=== PATIENT | male | born 1975 | race Caucasian/White ===

== ENCOUNTER 2018-07-07 20:39 | Emergency (ER) | payer MEDICAID ==
[~2018-07-07] VITALS: Ht 182.9 cm; Wt 90.7 kg
[2018-07-07] MEDS ORDERED: LIONS MANE MUSHROOM (20:52)
[2018-07-07] MEDS ORDERED: CEPH500 PO (21:34)
== END 2018-07-07 21:50 | disposition home or self-care (01) ==
LOC: ER 20:39
DX: L03.115 Cellulitis of right lower limb (principal)
CPT/HCPCS: 99283

== ENCOUNTER 2018-12-29 22:20 | Inpatient (IN) | payer OTHER ==
[~2018-12-29] VITALS: Ht 182.9 cm; Wt 107.9 kg
[~2018-12-29 22:20] MED LIST: CEPH500 PO; LIONS MANE MUSHROOM
[2018-12-29 22:49] LABS: BASOPHILS ABSOLUTE AUTO 0.05 K/mm3 (0.00-0.23); BASOPHILS PERCENT AUTO 1 % (0-2); EOSINOPHILS ABSOLUTE AUTO 0.24 K/mm3 (0.00-0.68); EOSINOPHILS PERCENT AUTO 2 % (0-6); Hematocrit 41.2 % (37.0-53.0); IMMATURE GRAN ABSOLUTE AUTO 0.03 K/mm3 (0.00-0.10); IMMATURE GRAN PERCENT AUTO 0 % (0-1); LYMPHOCYTES ABSOLUTE AUTO 1.82 K/mm3 (0.84-5.20); LYMPHOCYTES PERCENT AUTO 18 % (21-46); MONOCYTES ABSOLUTE AUTO 0.56 K/mm3 (0.16-1.47); MONOCYTES PERCENT AUTO 6 % (4-13); Mean Corpuscular HGB 29.3 pg (26.0-34.0); Mean Corpuscular HGB Conc 31.6 g/dL (31.5-36.5); Mean Corpuscular Volume 93 fL (80-100); NEUTROPHILS ABSOLUTE AUTO 7.31 K/mm3 (1.96-9.15); NEUTROPHILS PERCENT AUTO 73 % (41-73); Platelet Count 291 K/mm3 (150-400); RDW Coefficient Variation 12.6 % (11.7-14.2); RDW Standard Deviation 43.2 fL (35.1-46.3); Red Blood Cell Count 4.44 M/mm3 (4.30-5.90); White Blood Cell Count 10.01 K/mm3 (4.00-11.30)
[2018-12-29 23:23] LABS: Anion Gap 8 mmol/L (6-16); Blood Urea Nitrogen 11 mg/dL (8-24); Bun/Creatinine Ratio 13.3 (12.0-20.0); CO2, Blood 29 mmol/L (21-32); Chloride, Blood 109 mmol/L (98-108); Creatinine, Blood 0.83 mg/dL (0.60-1.20); Glomerular Filtration Rate >60 (60-); Glucose, Blood 136 mg/dL (70-99); Sodium, Blood 146 mmol/L (136-145); Total Protein, Blood 6.4 g/dL (6.4-8.2)
[2018-12-29 23:24] LABS: Alanine Aminotransfer (ALT/SGP 23 U/L (12-78); Albumin, Blood 3.3 g/dL (3.4-5.0); Albumin/Globulin Ratio 1.1 (0.8-1.8); Alk Phos 69 U/L (50-136); Aspartate Aminotrans (AST/SGOT 11 U/L (12-37); Bilirubin, Total 0.2 mg/dL (0.1-1.0); Globulin, Blood 3.1 g/dL (2.2-4.0); Troponin I 0.034 ng/mL (0.000-0.040)
[2018-12-30 03:07] LABS: International Normalized Ratio 1.02; Prothrombin Time Results 10.8 Sec (9.7-11.5)
--- NOTE | 2018-12-30 05:56 | NUR ---
SHIFT SUMMARY PT SLEEPING, TURNING AND MOVING SELF IN BED. UP TO BATHROOM AD SHANTA. RESP EVEN AND NONLABORED. PT SPO2 92-97% ON HIGH FLOW O2 VIA NC AT 11 LITERS. VSS. NO ACUTE CHANGE. REPORT TO ON COMING NURSE
--- NOTE | 2018-12-30 07:08 | NUR ---
SUMMARY PT ARRIVED TO ICU THIS MORNING. STAND AND TRANSFER TO ICU 10 BED. PT COMPLAINS OF CHEST DISCOMFORT, BUT STATES HE IS UNSURE IF IT IS RELATED TO CORDS/WIRES, BUT THAT IT ISN'T BAD LIKE IT WAS IN THE ER. PT ALSO COMPLAINS OF HEADACHE. SOME IMPROVEMENT WITH FENTANYL. PT EDUCATED, ENCOURAGED TO LET STAFF KNOW IF PAIN INCREASES SOON POSSIBLE AND PT AGREEABLE. ATTEMPTED TO EDUCATE PT ON USE OF STAND BY ASSIST FOR BATHROOM FOR SAFETY AND PATIENT REFUSES. PT ANXIOUS, TEARFUL RELATED TO DIAGNOSIS. EDUCATED PT ON PLAN. PT ALSO HYPERTENSIVE. OTHERWISE, VITALS STABLE. HYPERTENSION IMPROVED AFTER ADMIN OF ATIVAN AND ENCOURAGEMENT OF RELAXATION AND REST. DURING CHANGE OF SHIFT, PT CALLS STAFF INTO ROOM COMPLAINING OF CHEST PAIN. DAVE GAMBINO RN AT BEDSIDE. REPORT GIVEN TO TOAN PEREZ.
[2018-12-30 09:39] LABS: Hematocrit 39.8 % (37.0-53.0); Mean Corpuscular HGB 29.2 pg (26.0-34.0); Mean Corpuscular HGB Conc 32.7 g/dL (31.5-36.5); Mean Platelet Volume 10.2 fL (9.1-12.4); Platelet Count 291 K/mm3 (150-400); RDW Coefficient Variation 12.7 % (11.7-14.2); Red Blood Cell Count 4.45 M/mm3 (4.30-5.90); White Blood Cell Count 9.79 K/mm3 (4.00-11.30)
[2018-12-30 10:01] LABS: Alanine Aminotransfer (ALT/SGP 23 U/L (12-78); Albumin, Blood 3.6 g/dL (3.4-5.0); Albumin/Globulin Ratio 1.2 (0.8-1.8); Alk Phos 69 U/L (50-136); Anion Gap 8 mmol/L (6-16); Aspartate Aminotrans (AST/SGOT 13 U/L (12-37); Bilirubin, Total 0.3 mg/dL (0.1-1.0); Blood Urea Nitrogen 10 mg/dL (8-24); Bun/Creatinine Ratio 12.8 (12.0-20.0); CO2, Blood 26 mmol/L (21-32); Calcium, Blood 8.7 mg/dL (8.5-10.1); Chloride, Blood 108 mmol/L (98-108); Creatinine, Blood 0.78 mg/dL (0.60-1.20); Globulin, Blood 3.1 g/dL (2.2-4.0); Glomerular Filtration Rate >60 (60-); Glucose, Blood 120 mg/dL (70-99); Potassium, Blood 4.1 mmol/L (3.5-5.5); Sodium, Blood 142 mmol/L (136-145); Total Protein, Blood 6.7 g/dL (6.4-8.2); Troponin I 0.458 ng/mL (0.000-0.040)
[2018-12-30 10:18] LABS: Mean Corpuscular Volume 89 fL (80-100)
--- NOTE | 2018-12-30 12:46 | NUR ---
ASSUMED CARE OF PT: 704-ASSUMED CARE OF PT. PT COMPALINING OF CHEST PAIN 04/14 STABBING PAIN. PT HAS A NITRO PATCH IN PLACE. PT MEDICATED WITH 2MG OF MORPHINE IV PER ACLS PROTOCOL. 729-CALLED DR. RODRIGUEZ REGARDING PT'S COMPLAINTS OF CHEST PAIN. NO ORDERS RECEIVED. CHEST PAIN NOW 12/15. EKG DONE. 744-SPOKE WITH DR. EDOUARD REGARDING PT'S COMPLAINTS OF CHEST PAIN AND THAT PT RECEIVED A DOSE OF MORPHINE 2MG PER ACLS. SHE STATED PT CAN HAVE OT ORDER OF MORPHINE(WHICH PATIENT ALREADY RECEIVED) 08-DR. RODRIGUEZ AT BEDSIDE. PT DENIES CHEST PAIN AT THIS TIME. PT SOMEWHAT ANXIOUS. WILL GIVE 0.5MG OF ATIVAN ORDERED. PT HAD RECEIVED A DOSE OF ZOFRAN FOR NAUSEA. 1056-NITRO DRIP WAS STARTED @ 5MCG/MIN. DISCONTINUED NITRO PATCH.
--- NOTE | 2018-12-30 14:17 | NUR ---
Echocardiogram completed.
--- NOTE | 2018-12-30 17:25 | NUR ---
1700-PT COMPLAINTS OF 5/10 CHEST PAIN. INCREASED NITROGLYVERIN DRIP FROM 5MCG/MIN TO 10MCG/MIN. WILL WATCH FOR PERSISTENT CHEST PAIN.
[2018-12-30 17:43] LABS: Troponin I 0.346 ng/mL (0.000-0.040)
--- NOTE | 2018-12-30 18:16 | NUR ---
PT STILL COMPLAINTS OF CHEST PAIN DESPITE INCREASING NITROGLYCERIN DRIP TO 15MCG/MIN. THUS PT WAS MEDICATED WITH MORPHINE 2 MG IV. CP 3/10 AFTER RECEIVING MORPHINE. PT WAS MEDICATED WITH TYELNOL 650MG PO FOR HEADACHE. PT WAS TEARFUL. ASKED PT WHY HE'S CRYING, PT STATED HE " I JUST DON'T FEEL GOOD" INFORMED THAT HIS TROPONIN LEVEL IS GOING DOWN. INFORMED HIM REGARDING PLAN OF CARE. PT IS FEELING RELIEVED AFTER BEING EXPLAINED.
--- NOTE | 2018-12-30 18:40 | NUR ---
DR. RODRIGUEZ WAS NOTIFIED REGARDING PT'S COMPLAINTS OF CHEST PAIN AFTER GIVING HIM A DOSE OF MORPHINE AND INCREASING THE NITRO DRIP. PT STATED SMILING "IT WENT UP AGAIN" 03/14 AND WAS POINTING ACROSS HIS CHEST.
--- NOTE | 2018-12-30 19:30 | NUR ---
ASSUMED CARE REPORT AND ASSESSMENT COMPLETED. PT IS AWAKE AND ALERT, REPORTING CP 3-5/10, AM RN MEDICATED FOR PAIN AND INCREASED NTG GTT TO 20MCG AND HEPARIN GTT AT 17UNITS. PT REPORTING PAIN IS DECREASING AND IS LOOKIG FORWARD TO SLEEPING. UPDATED PT ON PLAN FOR OVERNIGHT, REASSURED TO REDUCE ANXIETY. BP HYPERTENSIVE BUT HS LOPRESSOR PLANNED. EKG SHOWS SR, O2 SATS 98% ON RA.
[2018-12-31 04:02] LABS: Hematocrit 41.8 % (37.0-53.0); Hemoglobin 13.4 g/dL (13.5-17.5); Mean Corpuscular HGB 29.3 pg (26.0-34.0); Mean Corpuscular HGB Conc 32.1 g/dL (31.5-36.5); Mean Corpuscular Volume 91 fL (80-100); Mean Platelet Volume 10.1 fL (9.1-12.4); Platelet Count 268 K/mm3 (150-400); RDW Coefficient Variation 12.5 % (11.7-14.2); RDW Standard Deviation 41.3 fL (35.1-46.3); Red Blood Cell Count 4.58 M/mm3 (4.30-5.90); White Blood Cell Count 9.78 K/mm3 (4.00-11.30)
[2018-12-31 04:39] LABS: Anion Gap 8 mmol/L (6-16); Blood Urea Nitrogen 11 mg/dL (8-24); Bun/Creatinine Ratio 11.6 (12.0-20.0); CHOL/HDL RATIO 2.1; CO2, Blood 27 mmol/L (21-32); Calcium, Blood 8.7 mg/dL (8.5-10.1); Chloride, Blood 107 mmol/L (98-108); Cholesterol 133 mg/dL (50-200); Creatinine, Blood 0.95 mg/dL (0.60-1.20); Glomerular Filtration Rate >60 (60-); Glucose, Blood 113 mg/dL (70-99); HDL Cholesterol 62 mg/dL (>39); LDL/HDL RATIO 0.8; Low Density Lipoprotein Chol 51 mg/dL (0-110); Magnesium, Blood 2.1 mg/dL (1.6-2.4); Phosphorus, Blood 3.5 mg/dL (2.5-4.9); Potassium, Blood 3.7 mmol/L (3.5-5.5); Sodium, Blood 142 mmol/L (136-145); Triglycerides 101 mg/dL (30-160); Troponin I 0.262 ng/mL (0.000-0.040); Very Low Density Lipoprot Chol 20 mg/dL (6-32)
--- NOTE | 2018-12-31 06:09 | NUR ---
SHIFT SUMMARY PT REMAINS ON NTG GTT AT 30MCG/MIN AND HEPARIN AT 19UNITS/KG/HR. PT HAS BEEN ABLE TO SLEEP FOR A FEW HOURS WHILE CP FREE. THIS AM, PT IS ANXIOUS AND REPORTS RETURN OF CP 6/10, DESCRIBED TIGHTNESS ACROSS HIS CHEST AND HAD ONE EPISODE OF EMESIS. PT RELATES EMESIS TO ATIVAN ADMINISTRATION. VSS, EKG SHOWS SR IN THE 70'S AND O2 SATS >95% ON RA. PT REMAINS NPO FOR POTENTIAL TRIP TO [employer] THIS AM.
--- NOTE | 2018-12-31 08:26 | NUR ---
CARE OF PT ASSUMED, GTT'S CHECKED. HEPARIN AT 19, NTG AT 30. PT DENIES C/O CHEST PAIN, CHEST PRESSURE, SOB, NAUSEA. C/O HEADACHE 06/14. NTG TURNED DOWN TO 15MCG AT 0815, FENT 50MCG GIVEN FOR SULTANA. PT TO [facility] FOR ANGIOGRAM AT 0825.
--- NOTE | 2018-12-31 10:36 | NUR ---
PT BACK S/P ANGIOGRAM AT 1015. TR BAND TO R WRIST W 15CC AIR. PT STATES WRIST IS UNCOMFORTABLE BUT DENIES NUMBNESS/TINGLING TO R HAND. CIRC CHECK WNL. PT C/O CHEST PAIN MID STERNUM 6/10, ACHE W SHARP PAIN ON INSPIRATION. NTG GTT AT 15MCG. 2MG MORPHINE IV GIVEN FOR CHEST PAIN; PT STATES CHEST PAIN 0/10 AFTER MS. PT APPEARS ANXIOUS; CONSTANT FIDGETING AND RESTLESSNESS.
--- NOTE | 2018-12-31 11:56 | NUR ---
RIGHT RADIAL WITH TR BAND CHECKED EVERY 15MIN FROM 1015 UNTIL NOW. R WRIST REMAINS STABLE WITHOUT BLEEDINF, SWELLING, PAIN. RIGHT HAND CONTINUES TO HAVE CIRC CHECK WNL. TR BAND HAS BEEN ON FOR 2 HOURS. WILL START DEFLATING TR BAND SLOWLY. NTG GTT TITRATED OFF. PT DENIES CHEST PAIN. PT PCU STATUS NOW.
--- NOTE | 2018-12-31 12:41 | NUR ---
TR BAND AIR SLOWLY REMOVED OVER 30MIN. TR BAND LEFT IN PLACE. R WRIST W/O BLEEDING, SWELLING, PAIN.
--- NOTE | 2018-12-31 15:27 | NUR ---
DR RODRIGUEZ IN TO SEE PT. POST ANGIO EKG COMPLETED. PT TO START COZAAR FOR HTN. PT DENIES COMPLAINTS OF PAIN AND IS FEELING OPTIMISTIC ABOUT HIS FUTURE
--- NOTE | 2018-12-31 17:48 | NUR ---
HYDRALAZINE IV GIVEN FOR HTN. PT W/O COMPLAINTS. RIGHT ART SITE C/D/I W OPSITE
--- NOTE | 2018-12-31 19:36 | NUR ---
ASSUMED PT CARE AT 1915 PT SITTING UP IN BED ON ELECTRONIC DEVICE. MONITOR SHOWING BP 146/96; HR 75. PT IS ON ROOM AIR WITH OXYGEN SATURATIONS 97%. IMMOBILIZER IN PLACE TO RIGHT LOWER ARM WITH DRESSING INTACT TO RIGHT WRIST. CALL LIGHT IS WITHIN REACH; PT DOES NOT APPEAR TO BE IN ANY DISTRESS AT THIS TIME.
--- NOTE | 2018-12-31 20:46 | NUR ---
PT STATED HE WAS FEELING ANXIOUS AND WOULD LIKE ME TO CALL THE PHYSICIAN ABOUT A CHANGE TO ATIVAN D/T THE ATIVAN MAKING HIM FEEL NAUSEAS AND CAUSED EMESIS WITH BOTH TIMES IT WAS ADMINISTERED. CONTACTED PHYSICIAN AND RECEIVED ORDERS TO TRY XANAX INSTEAD; JUST ADMINISTERED. WILL CONTINUE TO MONITOR TO N/V.
--- NOTE | 2019-01-01 00:45 | NUR ---
PT REQUESTED NOT TO BE WOKEN UP ONCE ASLEEP D/T HIM HAVING DIFFICULTIES FALLING ASLEEP ONCE AWAKE; WILL ATTEMPT VITAL SIGNS ONCE PT AWAKENS TO USE THE RESTROOM OR LAB MAKES THEIR ROUNDS.
[2019-01-01 05:08] LABS: Mean Platelet Volume 9.9 fL (9.1-12.4); Platelet Count 319 K/mm3 (150-400)
--- NOTE | 2019-01-01 05:25 | NUR ---
END OF SHIFT SUMMARY PT HAS BEEN INDEPENDENT IN ROOM. NO EPISODES OF CHEST PAIN/DISCOMFORT THIS SHIFT. MONITOR DISPLAYS LAST BP 134/92; HR 79; RR 16. XANAX APPEARED EFFECTIVE FOR PT EARLIER; NO NAUSEA/VOMITING. PT LAID BACK DOWN; STATED HE COULD REPOSITION SELF AND NOT TO WAKE FOR REPOSITIONING. PT DOES NOT APPEAR TO BE IN ANY DISTRESS AT THIS TIME.
--- NOTE | 2019-01-01 07:45 | NUR ---
CARE ASSUMED CARE AND REPORT ASSUMED FROM SURI JOYA. DENIES PAIN AT THIS TIME. VSS. PT STATES HE IS ANXIOUS AND READY TO GO HOME. R ARM SECURED IN ARMBOARD AND PT AWARE OF LIMITED USE. TAGADERM HAS SMALL SPOT OF OLD BLOOD ON IT; WILL MONITOR. IV SALINE LOCKED. A/O X 3 AND COOPERATIVE. SITTING UP IN BED WATCHING TV AND SIPPING ON TEA. WILL CONTINUE TO MONITOR.
[2019-01-01 07:55] LABS: Anion Gap 7 mmol/L (6-16); Blood Urea Nitrogen 12 mg/dL (8-24); Bun/Creatinine Ratio 13.5 (12.0-20.0); CO2, Blood 27 mmol/L (21-32); Chloride, Blood 108 mmol/L (98-108); Creatinine, Blood 0.89 mg/dL (0.60-1.20); Glomerular Filtration Rate >60 (60-); Glucose, Blood 106 mg/dL (70-99); Potassium, Blood 4.2 mmol/L (3.5-5.5); Sodium, Blood 142 mmol/L (136-145)
[2019-01-01] MEDS ORDERED: ALPR.25 PO (11:14)
[2019-01-01] MEDS ORDERED: ASPI81CH PO (11:15)
[2019-01-01] MEDS ORDERED: ATOR40TA PO (11:16)
[2019-01-01] MEDS ORDERED: CLOP75 PO (11:16)
[2019-01-01] MEDS ORDERED: METO25 PO (11:16)
[2019-01-01] MEDS ORDERED: LOSA25 PO (11:16)
[2019-01-01] MEDS ORDERED: NITR.4SL SL (11:17)
--- NOTE | 2019-01-01 11:36 | NUR ---
DISCHARGE SCRIPTS CALLED TO [facility]. ATTEMPTED TO SET UP APPOINTMENT FOR CARDIO FOLLOW UP BUT STAFF REPORTED THEY WOULD CALL PT FOR SET UP. VSS. REVIEWED DISCHARGE INSTRUCTIONS WITH PT, AND MEDICATIONS. HE DISPLAYS UNDERSTANDING. AMBULATORY TO DISCHARGE WITH FRIEND.
== END 2019-01-01 11:30 | disposition home or self-care (01) | DRG 247 ==
LOC: ER 22:20 → ICUW 22:21
PROVIDERS: Emergency Medicine; Internal Medicine; Internal Medicine Cardiovascular Disease; ADMIT Internal Medicine
PROC: 027034Z Dilation of Coronary Artery, One Artery with Drug-eluting Intraluminal Device, Percutaneous Approach (ICD-10-PCS; principal; 2018-12-31)
PROC: 4A023N7 Measurement of Cardiac Sampling and Pressure, Left Heart, Percutaneous Approach (ICD-10-PCS; 2018-12-31)
PROC: B2111ZZ Fluoroscopy of Multiple Coronary Arteries using Low Osmolar Contrast (ICD-10-PCS; 2018-12-31)
DX: I21.4 Non-ST elevation (NSTEMI) myocardial infarction (principal); Z87.891 Personal history of nicotine dependence; I10 Essential (primary) hypertension; I25.10 Atherosclerotic heart disease of native coronary artery without angina pectoris; F41.9 Anxiety disorder, unspecified; Z79.82 Long term (current) use of aspirin
CPT/HCPCS: 36415; 71046; 80048; 80053; 80061; 82550; 83036; 83735; 84100; 84484; 85025; 85027; 85049; 85347; 85379; 85610; 85730; 93005; 93010; 93306; 93458; 96365; 96375; 96376; 99152; 99153; 99285-25; C1725; C1769; C1874; C1887; C1894; C9600; G0378; J0360; J1644; J1885; J2250; J2270; J2405; J3010; J7030; Q9967

== ENCOUNTER 2019-10-13 08:52 | Emergency (ER) | payer OTHER ==
[~2019-10-13] VITALS: Ht 182.9 cm; Wt 104.3 kg
[~2019-10-13 08:52] MED LIST changes: +ALPR.25 PO; +ASPI81CH PO; +ATOR40TA PO; +CLOP75 PO; +LOSA25 PO; +METO25 PO; +NITR.4SL SL
[2019-10-13] MEDS ORDERED: BUPR150ER PO (09:14)
[2019-10-13] MEDS ORDERED: Vitamin D2000 UNIT PO (09:15)
[2019-10-13 09:28] LABS: BASOPHILS ABSOLUTE AUTO 0.08 K/mm3 (0.00-0.23); BASOPHILS PERCENT AUTO 1 % (0-2); EOSINOPHILS ABSOLUTE AUTO 0.25 K/mm3 (0.00-0.68); EOSINOPHILS PERCENT AUTO 3 % (0-6); Hemoglobin 14.7 g/dL (13.5-17.5); IMMATURE GRAN ABSOLUTE AUTO 0.02 K/mm3 (0.00-0.10); IMMATURE GRAN PERCENT AUTO 0 % (0-1); LYMPHOCYTES ABSOLUTE AUTO 1.72 K/mm3 (0.84-5.20); LYMPHOCYTES PERCENT AUTO 18 % (21-46); MONOCYTES ABSOLUTE AUTO 0.46 K/mm3 (0.16-1.47); MONOCYTES PERCENT AUTO 5 % (4-13); Mean Corpuscular HGB 29.4 pg (26.0-34.0); Mean Corpuscular HGB Conc 32.7 g/dL (31.5-36.5); Mean Corpuscular Volume 90 fL (80-100); Mean Platelet Volume 10.5 fL (9.1-12.4); NEUTROPHILS ABSOLUTE AUTO 6.85 K/mm3 (1.96-9.15); NEUTROPHILS PERCENT AUTO 73 % (41-73); Platelet Count 284 K/mm3 (150-400); RDW Coefficient Variation 11.7 % (11.7-14.2); RDW Standard Deviation 38.5 fL (35.1-46.3); White Blood Cell Count 9.38 K/mm3 (4.00-11.30)
[2019-10-13 09:56] LABS: Alanine Aminotransfer (ALT/SGP 28 U/L (12-78); Albumin, Blood 3.8 g/dL (3.4-5.0); Albumin/Globulin Ratio 1.1 (0.8-1.8); Alk Phos 57 U/L (50-136); Anion Gap 5 mmol/L (6-16); Aspartate Aminotrans (AST/SGOT 12 U/L (12-37); Bilirubin, Total 0.6 mg/dL (0.1-1.0); Blood Urea Nitrogen 17 mg/dL (8-24); Bun/Creatinine Ratio 18.2 (12.0-20.0); CO2, Blood 27 mmol/L (21-32); Chloride, Blood 109 mmol/L (98-108); Creatinine, Blood 0.93 mg/dL (0.60-1.20); Globulin, Blood 3.4 g/dL (2.2-4.0); Glomerular Filtration Rate >60 (60-); Glucose, Blood 109 mg/dL (70-99); Potassium, Blood 4.3 mmol/L (3.5-5.5); Sodium, Blood 141 mmol/L (136-145); Total Protein, Blood 7.2 g/dL (6.4-8.2); Troponin I <0.015 ng/mL (0.000-0.040)
== END 2019-10-13 12:10 | disposition home or self-care (01) ==
LOC: ER 08:52
PROVIDERS: Emergency Medicine
DX: R07.9 Chest pain, unspecified (principal); I25.10 Atherosclerotic heart disease of native coronary artery without angina pectoris; F32.9 Major depressive disorder, single episode, unspecified; F41.9 Anxiety disorder, unspecified; Z79.899 Other long term (current) drug therapy; Z79.82 Long term (current) use of aspirin; Z79.01 Long term (current) use of anticoagulants; Z87.891 Personal history of nicotine dependence
CPT/HCPCS: 36415; 71046; 80053; 83880; 84484; 85025; 93005; 93010; 99284-25

== ENCOUNTER 2020-02-24 02:02 | Emergency (ER) | payer OTHER ==
[~2020-02-24] VITALS: Ht 182.9 cm; Wt 99.8 kg
[~2020-02-24 02:02] MED LIST changes: +BUPR150ER PO; +Vitamin D2000 UNIT PO
[2020-02-24] MEDS ORDERED: METO100ER PO (02:37)
[2020-02-24] MEDS ORDERED: AMLODIPINE BESYL5 MG PO (02:37)
[2020-02-24] MEDS ORDERED: HYDCHL25 PO (02:38)
[2020-02-24] MEDS ORDERED: PLAVIX75 MG PO (02:40)
[2020-02-24] MEDS ORDERED: LOSA25 PO (02:40)
[2020-02-24] MEDS ORDERED: ROSUVASTATIN CAL5 MG PO (02:41)
[2020-02-24 03:53] LABS: BASOPHILS ABSOLUTE AUTO 0.03 K/mm3 (0.00-0.23); BASOPHILS PERCENT AUTO 1 % (0-2); EOSINOPHILS ABSOLUTE AUTO 0.08 K/mm3 (0.00-0.68); EOSINOPHILS PERCENT AUTO 2 % (0-6); Hematocrit 38.5 % (37.0-53.0); Hemoglobin 12.9 g/dL (13.5-17.5); IMMATURE GRAN ABSOLUTE AUTO 0.02 K/mm3 (0.00-0.10); IMMATURE GRAN PERCENT AUTO 0 % (0-1); LYMPHOCYTES ABSOLUTE AUTO 0.68 K/mm3 (0.84-5.20); LYMPHOCYTES PERCENT AUTO 13 % (21-46); MONOCYTES ABSOLUTE AUTO 0.42 K/mm3 (0.16-1.47); MONOCYTES PERCENT AUTO 8 % (4-13); Mean Corpuscular HGB 29.9 pg (26.0-34.0); Mean Corpuscular HGB Conc 33.5 g/dL (31.5-36.5); Mean Corpuscular Volume 89 fL (80-100); Mean Platelet Volume 10.1 fL (9.1-12.4); NEUTROPHILS ABSOLUTE AUTO 3.84 K/mm3 (1.96-9.15); NEUTROPHILS PERCENT AUTO 76 % (41-73); Platelet Count 229 K/mm3 (150-400); RDW Coefficient Variation 11.9 % (11.7-14.2); RDW Standard Deviation 39.5 fL (35.1-46.3); Red Blood Cell Count 4.31 M/mm3 (4.30-5.90); White Blood Cell Count 5.07 K/mm3 (4.00-11.30)
[2020-02-24 04:22] LABS: Alanine Aminotransfer (ALT/SGP 28 U/L (12-78); Albumin, Blood 3.5 g/dL (3.4-5.0); Alk Phos 58 U/L (50-136); Anion Gap 5 mmol/L (6-16); Aspartate Aminotrans (AST/SGOT 20 U/L (12-37); Bilirubin, Total 0.5 mg/dL (0.1-1.0); Blood Urea Nitrogen 18 mg/dL (8-24); Bun/Creatinine Ratio 20.9 (12.0-20.0); CO2, Blood 27 mmol/L (21-32); Calcium, Blood 8.4 mg/dL (8.5-10.1); Chloride, Blood 108 mmol/L (98-108); Creatinine, Blood 0.86 mg/dL (0.60-1.20); Globulin, Blood 3.4 g/dL (2.2-4.0); Glomerular Filtration Rate >60 (60-); Glucose, Blood 132 mg/dL (70-99); Potassium, Blood 3.7 mmol/L (3.5-5.5); Sodium, Blood 140 mmol/L (136-145); Total Protein, Blood 6.9 g/dL (6.4-8.2); Troponin I <0.015 ng/mL (0.000-0.040)
== END 2020-02-24 05:36 | disposition home or self-care (01) ==
LOC: ER 02:02
PROVIDERS: Emergency Medicine
DX: F41.9 Anxiety disorder, unspecified (principal); T46.1X5A Adverse effect of calcium-channel blockers, initial encounter; I10 Essential (primary) hypertension; Z79.899 Other long term (current) drug therapy; Z87.891 Personal history of nicotine dependence
CPT/HCPCS: 36415; 80053; 84484; 85025; 93005; 93010; 96360; 99283-25; J7030

== ENCOUNTER → 2023-09-25 | Outpatient (CLI) | payer OTHER ==
[~2023-09-25] MED LIST changes: +AMLODIPINE BESYL5 MG PO; +HYDCHL25 PO; +METO100ER PO; +PLAVIX75 MG PO; +ROSUVASTATIN CAL5 MG PO
[2023-09-25 22:55] LABS: Bun/Creatinine Ratio 18.7 (12.0-20.0); Calcium, Blood 9.1 mg/dL (8.5-10.1); Creatinine, Blood 1.23 mg/dL (0.60-1.20); Thyroid Stimulating Hormone 0.98 uIU/mL (0.360-4.800)
== END | disposition home or self-care (01) ==
LOC: LAB 16:22 → LAB SHORT 16:22
PROVIDERS: Physician Assistant
DX: R60.9 Edema, unspecified (principal); Z79.899 Other long term (current) drug therapy
CPT/HCPCS: 80048; 82306; 83036; 83880; 84443

== ENCOUNTER 2024-06-23 06:24 | Day surgery (SDC) | payer OTHER ==
[2024-06-23] VITALS (15 sets, daily range): BP systolic 92–138; BP diastolic 62–110
[~2024-06-23] VITALS: Ht 182.9 cm; Wt 106.9 kg
[~2024-06-23 06:24] MED LIST changes: +BACL10 PO; +Lactated Ringer's 1,000 ML IV SCH; +PRAV20 PO
--- NOTE | 2024-06-23 07:07 | NUR ---
History, Chart, Medications and Allergies reviewed before start of procedure. Lungs clear T/O to Auscultation. Patient confirms NPO status and agrees with scheduled surgery. Patient states colon prep results clear. Patient States Post-Procedure ride home has been arranged.
[2024-06-23] MEDS ORDERED: propofoL 40 ML IV ONE (07:10)
--- NOTE | 2024-06-23 07:38 | NUR ---
06/23/24 0738 Sharita Nunez History, Chart, Medications and Allergies reviewed before start of procedure. Patient confirms NPO status and agrees with scheduled surgery. HISTORY, CHART, MEDICATIONS AND ALLERGIES REVIEWED BEFORE START OF PROCEDURE. PATIENT CONFIRMS NPO STATUS AND AGREES WITH SCHEDULED PROCEDURE. 3-LEAD EKG REVIEWED WITH PHYSICIAN PRIOR TO START OF PROCEDURE. MONITOR INTACT WITH CONTINUOUS PULSE OXIMETRY,CAPNOGRAPHY, 3-LEAD EKG, INTERMITTENT BP. SUPPLEMENTAL O2 TO BE TITRATED THROUGHOUT PROCEDURE TO MAINTAIN O2 SATURATION ABOVE 90%. PATIENT DETERMINED TO BE ASA APPROPRIATE FOR PROPOFOL SEDATION PRIOR TO START OF PROCEDURE BY DR. BROWN. MALLAMPATI CLASS 1 AIRWAY: COMPLETE VISULATIZATION OF THE SOFT PALATE.
[2024-06-23] MEDS ORDERED: Midazolam HCl 1MG / ML 2ML Vial ONE (07:39)
--- NOTE | 2024-06-23 08:24 | NUR ---
DISCHARGE NOTE PT A&OX4, BREATHING RA, VSS, NO COMPLAINTS, TOLERATING PO FLUIDS, AT BEDSIDE. DRESSED INDEPENDENTLY. Patient up to Ambulate independently. Gait steady. Discharge instructions reviewed with patient. Patient verbalizes understanding. Copy given to patient to take home.ABDOMEN SOFT AND NON TENDER. Discharged via wheelchair to private car for ride home.
== END 2024-06-23 08:22 | disposition home or self-care (01) ==
LOC: ORSCMMR 06:24 → ORD 07:30 → ORSCMMR 08:22
PROVIDERS: Internal Medicine Gastroenterology
PROC: 0DBM8ZX Excision of Descending Colon, Via Natural or Artificial Opening Endoscopic, Diagnostic (ICD-10-PCS; principal; 2024-06-23 07:30)
DX: Z12.11 Encounter for screening for malignant neoplasm of colon (principal); D12.4 Benign neoplasm of descending colon; I25.2 Old myocardial infarction; I10 Essential (primary) hypertension; F32.A Depression, unspecified; I25.10 Atherosclerotic heart disease of native coronary artery without angina pectoris; Z79.02 Long term (current) use of antithrombotics/antiplatelets; Z87.891 Personal history of nicotine dependence; Z79.899 Other long term (current) drug therapy
CPT/HCPCS: 88305; J2250; J2704; J7120

== ENCOUNTER → 2024-07-30 | Outpatient (CLI) | payer OTHER ==
[~2024-07-30] MED LIST changes: -Lactated Ringer's 1,000 ML IV SCH
[2024-07-30 11:39] LABS: BASOPHILS ABSOLUTE AUTO 0.05 K/mm3 (0.00-0.23); BASOPHILS PERCENT AUTO 1 % (0-2); EOSINOPHILS ABSOLUTE AUTO 0.33 K/mm3 (0.00-0.68); EOSINOPHILS PERCENT AUTO 6 % (0-6); Hematocrit 41.2 % (37.0-53.0); Hemoglobin 13.7 g/dL (13.5-17.5); IMMATURE GRAN ABSOLUTE AUTO 0.01 K/mm3 (0.00-0.10); IMMATURE GRAN PERCENT AUTO 0 % (0-1); LYMPHOCYTES ABSOLUTE AUTO 1.81 K/mm3 (0.84-5.20); LYMPHOCYTES PERCENT AUTO 34 % (21-46); MONOCYTES ABSOLUTE AUTO 0.49 K/mm3 (0.16-1.47); MONOCYTES PERCENT AUTO 9 % (4-13); Mean Corpuscular HGB 29.1 pg (26.0-34.0); Mean Corpuscular HGB Conc 33.3 g/dL (31.5-36.5); Mean Corpuscular Volume 88 fL (80-100); NEUTROPHILS ABSOLUTE AUTO 2.68 K/mm3 (1.96-9.15); NEUTROPHILS PERCENT AUTO 50 % (41-73); Platelet Count 312 K/mm3 (150-400); RDW Coefficient Variation 12.3 % (11.7-14.2); RDW Standard Deviation 39.8 fL (35.1-46.3); White Blood Cell Count 5.37 K/mm3 (4.00-11.30)
[2024-07-30 12:05] LABS: Albumin, Blood 3.7 g/dL (3.4-5.0); Albumin/Globulin Ratio 1.2 (0.8-1.8); Bilirubin, Total 0.4 mg/dL (0.1-1.0); Creatinine, Blood 0.87 mg/dL (0.60-1.20); Globulin, Blood 3.1 g/dL (2.2-4.0); Potassium, Blood 3.7 mmol/L (3.5-5.5); Total Protein, Blood 6.8 g/dL (6.4-8.2)
== END | disposition home or self-care (01) ==
LOC: LAB 09:00 → LAB SHORT 09:00
PROVIDERS: Family Medicine
DX: I12.9 Hypertensive chronic kidney disease with stage 1 through stage 4 chronic kidney disease, or unspecified chronic kidney disease (principal); N18.2 Chronic kidney disease, stage 2 (mild); I25.10 Atherosclerotic heart disease of native coronary artery without angina pectoris
CPT/HCPCS: 80053; 85025